=== PATIENT | female | born 1950 | race Hispanic/Latino ===

== ENCOUNTER 2017-02-13 10:05 | Outpatient (CLI) | payer MEDICARE ==
--- NOTE | 2017-02-13 15:10 | Cat Scan Report ---
CT CHEST WITHOUT CONTRAST: HISTORY: Right lung mass. TECHNIQUE: Helical CT with sagittal and coronal reformatted images. FINDINGS: Compared to the CT chest dated 07/12/[address] dated 02/08/16. The right lower lobe mass appears stable in size and contour are measuring up to 3.1 x 2.8 cm in axial plane. The remainder of the lungs are clear. Mild centrilobular emphysematous changes are suspected. Trace right pleural effusion is unchanged. There is mild cardiomegaly. No pericardial effusion. There are a few scattered borderline mediastinal lymph nodes which appear stable in size and number. No bulky thoracic adenopathy. The thoracic cage is intact. No fracture or suspicious bony lesions appreciated. IMPRESSION: No significant change in the right lower lobe lung mass. Trace right pleural effusion, unchanged. Cardiomegaly, stable. Mild emphysematous changes.
== END 2017-02-13 10:06 | disposition home or self-care (01) ==
LOC: CT 10:05
PROVIDERS: ATTEND Internal Medicine Critical Care Medicine
DX: R91.1 Solitary pulmonary nodule (principal); J90 Pleural effusion, not elsewhere classified; I51.7 Cardiomegaly; R91.8 Other nonspecific abnormal finding of lung field
CPT/HCPCS: 71250

== ENCOUNTER 2017-10-01 08:07 | Day surgery (SDC) | payer MEDICARE ==
[2017-10-01 09:12] LABS: Basophils # (Auto) 0.1 K/mm3 (0.0-0.1); Basophils % (Auto) 2.5 % (0.0-1.8); Eosinophils # (Auto) 0.2 K/mm3 (0.0-0.4); Eosinophils % (Auto) 3.8 % (0.0-4.3); Hemoglobin 13.6 gm/dl (10.1-14.3); Lymphocytes # (Auto) 1.1 K/mm3 (1.2-5.4); Lymphocytes % (Auto) 23.3 % (13.4-35.0); Mean Corpuscular HGB Conc 33 % (30-34); Mean Corpuscular Hemoglobin 33 pg (28-32); Mean Corpuscular Volume 99 fl (79-97); Monocytes # (Auto) 0.6 K/mm3 (0.0-0.8); Monocytes % (Auto) 12.4 % (0.0-7.3); Platelet Count 160 K/mm3 (140-440); Red Blood Count 4.14 M/mm3 (3.65-5.03)
[2017-10-01 09:23] LABS: INR 1.09 (0.87-1.13)
[2017-10-01 09:24] LABS: Partial Thromboplastin Time 33.2 Sec. (24.2-36.6)
[2017-10-01] MEDS ORDERED: VERSED IV ONE (09:30)
[2017-10-01] MEDS ORDERED: SUBLIMAZE IV ONE (09:30)
--- NOTE | 2017-10-01 14:04 | Cat Scan Report ---
CT BIOPSY LUNG, RIGHT History: Right lung mass. Description of procedure: Informed consent was obtained. Sterile technique was utilized. Moderate sedation was accomplished with Versed and fentanyl. Independent cardiorespiratory monitoring by RN. The patient was sedated for 20 minutes. Intraobserver time of [address] guidance, a 19-gauge introducer needle was advanced to the leading edge of an approximate 4.5 x 3.2 cm masslike lesion at the right lung base. 2 separate 20-gauge core biopsies were obtained. Pathology was present to evaluate the samples. No complications. Impression: Successful CT-guided biopsy of the right lower lobe lesion.
[2017-10-01 14:23] VITALS: BP 107/56
--- NOTE | 2017-10-01 14:58 | XRay Report ---
AP CHEST: HISTORY: Right lower lobe mass, recent CT-guided biopsy Recent CT-guided biopsy of a right lower lobe lesion was performed. Followup chest x-ray demonstrates no evidence for pneumothorax. Mild cardiomegaly, mild vascular congestion and trace right pleural effusion are identified. IMPRESSION: No evidence for pneumothorax.
== END 2017-10-01 15:30 | disposition home or self-care (01) ==
LOC: CATHLABREC 08:07 → EDSTATUS 08:30 → CATHLABREC 15:30
PROVIDERS: ATTEND Internal Medicine Critical Care Medicine
DX: C34.31 Malignant neoplasm of lower lobe, right bronchus or lung (principal); Z79.01 Long term (current) use of anticoagulants
CPT/HCPCS: 32405; 36415; 71010; 77012; 85025; 85610; 85730; 88305; 88333; 99156; J2250; J3010; 81235; 88271; 88275; 88291

== ENCOUNTER 2017-10-30 09:14 | Outpatient (CLI) | payer MEDICARE ==
--- NOTE | 2017-11-02 09:28 | PET Report ---
PET/CT:10/30/17 09:14:00 CLINICAL: Lung cancer restaging. RADIOPHARMACEUTICAL: 13.25mCi F18-FDG. COMPARISON: 02/08/16 PET/CT TECHNIQUE- Following intravenous injection of F-18 FDG and an approximately 60 minute uptake period, CT and PET images from the mid skull to the upper thighs were acquired with the patient in the fasted state. No contrast was administered. The CT protocol used for this PET CT study is designed for attenuation correction and anatomic localization of PET abnormalities. This tunnel kiln operator CT is not desired to produce and cannot replace, [id number] diagnostic CT scans with specific imaging protocols for different body parts and indications. Plasma glucose at the time of this test: 183g/dl. The standardized uptake values (SUV) are normalized to patient body weight and indicate the highest activity concentration (SUV max) in a given disease site. FINDINGS: Brain--Physiologic FDG uptake in the visualized regions of the brain. Neck--Physiologic FDG uptake . Chest--Physiologic FDG uptake in mediastinal blood pool and myocardium. Lungs/Pleura--A wedge-shaped soft tissue mass in the superior segment of the right lower lobe has increased in size and measures proximally 5.1 x 4.3 cm compared to 3.6 x 3.2 cm on the last exam. Only a small portion of the mass is FDG avid with SUV 2.9 compared to 3.6 on the last exam. There is a new moderate size right pleural effusion. No other lung mass. Thoracic nodes--No abnormal uptake. Hepatobiliary--No abnormal uptake. Liver background SUV mean, as a reference for comparing FDG studies, is 2.4 compared to 3.1 on the last exam. No liver mass. Spleen--No abnormal uptake. Pancreas--No abnormal uptake. Adrenal Glands--No abnormal uptake. Kidneys/Ureters/Bladder--No abnormal uptake. Abdominopelvic Nodes--No abnormal uptake. Bowel/Peritoneum/Mesentery--No abnormal uptake. Pelvic organs--No abnormal uptake. Bones/Soft Tissues--No abnormal uptake. No suspicious bone lesions. Other findings: Cholelithiasis but no signs of acute cholecystitis. Extensive atherosclerotic calcification of the abdominal aorta and branches. Sigmoid diverticulosis but no diverticulitis. IMPRESSION- 1. A larger right lower lobe lung mass but decreased FDG uptake. 2. New moderate size right pleural effusion. 3. No evidence of fatimah, hepatic, adrenal or skeletal metastasis.
== END 2017-10-30 09:15 | disposition home or self-care (01) ==
LOC: PET 09:14
PROVIDERS: ATTEND Internal Medicine Critical Care Medicine
DX: C34.31 Malignant neoplasm of lower lobe, right bronchus or lung (principal); J90 Pleural effusion, not elsewhere classified; K80.20 Calculus of gallbladder without cholecystitis without obstruction; K57.30 Diverticulosis of large intestine without perforation or abscess without bleeding; I70.0 Atherosclerosis of aorta; Z79.899 Other long term (current) drug therapy
CPT/HCPCS: 78815; 82962; A9552

== ENCOUNTER 2018-01-05 14:20 | Outpatient (CLI) | payer MEDICARE | END 2018-01-05 14:21 | disposition home or self-care (01) | LOC: LABHHL 14:20 | PROVIDERS: ATTEND Internal Medicine Hematology & Oncology | DX: C34.91 Malignant neoplasm of unspecified part of right bronchus or lung (principal); I10 Essential (primary) hypertension; E78.00 Pure hypercholesterolemia, unspecified; Z87.891 Personal history of nicotine dependence | CPT/HCPCS: 88342 ==